=== PATIENT | female | born 1950 | race African-American/Black ===

== ENCOUNTER 2018-03-13 09:29 | Outpatient (CLI) | payer MEDICARE, OTHER ==
[2018-03-13] MEDS ORDERED: ISOVUE-370 76%-LOCM 1 ML ONE (09:55)
== END 2018-03-13 09:30 | disposition home or self-care (01) ==
LOC: BICCT 09:29
PROVIDERS: ATTEND Family Medicine
DX: R10.13 Epigastric pain (principal); R63.4 Abnormal weight loss; R68.81 Early satiety
CPT/HCPCS: 74177; 82565

== ENCOUNTER 2018-03-24 14:36 | Outpatient (CLI) | payer MEDICARE, OTHER ==
[~2018-03-24 14:36] MED LIST: Iopamidol 370 76% 100 ML VIAL ONE
== END 2018-03-24 14:37 | disposition home or self-care (01) ==
LOC: BICCT 14:36
PROVIDERS: ATTEND Internal Medicine Gastroenterology
DX: R93.3 Abnormal findings on diagnostic imaging of other parts of digestive tract (principal); R63.4 Abnormal weight loss; R19.8 Other specified symptoms and signs involving the digestive system and abdomen; R11.0 Nausea; R53.81 Other malaise; R63.0 Anorexia; K22.9 Disease of esophagus, unspecified
CPT/HCPCS: 71260

== ENCOUNTER 2018-04-09 11:00 | Outpatient (CLI) | payer MEDICARE, OTHER ==
--- NOTE | 2018-04-09 15:15 | PET ---
PET WITH CT SKULL TO MID THIGH: CLINICAL HISTORY: Esophageal mass. Mass of the mediastinum demonstrated on preceding CT examinations dated 03/24/18 and 03/13/18. FINDINGS: There is appropriate biodistribution of radiotracer activity. RADIOTRACER: 11.5 mCi fluorine 18-FDG IV. FINDINGS: The previously documented mediastinal mass adjacent esophagus is redemonstrated. This is not hyperme tabolic. The finding demonstrates a similar noncontrast Hounsfield unit to a prior contrasted Hounsf ield unit which indicates a nonenhancing cyst. 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 No associated inflammation. There is mild multifocal subpleural irregularity/nodularity of the lungs bilaterally. There are a fe w scattered blebs of the pulmonary parenchyma. Evidence of prior cholecystectomy. There is vascular calcification. There is a noninflamed fat-containing umbilical hernia. There is mild degenerative a ctivity involving the facet joint of the low cervical spine. 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 No associat ed hypermetabolic activity. POS: FRANK
== END 2018-04-09 11:01 | disposition home or self-care (01) ==
LOC: PET 11:00
PROVIDERS: ATTEND Thoracic Surgery (Cardiothoracic Vascular Surgery)
DX: K22.8 Other specified diseases of esophagus (principal); J98.59 Other diseases of mediastinum, not elsewhere classified
CPT/HCPCS: 78815; A9552

== ENCOUNTER 2018-08-21 08:24 | Outpatient (CLI) | payer MEDICARE, OTHER | END 2018-08-21 08:25 | disposition home or self-care (01) | LOC: BICMAMMO 08:24 | PROVIDERS: ATTEND Family Medicine | DX: Z12.31 Encounter for screening mammogram for malignant neoplasm of breast (principal) | CPT/HCPCS: 77063; 77067 ==

== ENCOUNTER 2020-12-14 09:00 | Outpatient (CLI) | payer MEDICARE, OTHER | END 2020-12-14 09:01 | disposition home or self-care (01) | LOC: BICMAMMO 09:00 | PROVIDERS: ATTEND Family Medicine | DX: Z12.31 Encounter for screening mammogram for malignant neoplasm of breast (principal) | CPT/HCPCS: 77063; 77067 ==

== ENCOUNTER 2021-06-07 13:49 | Outpatient (CLI) | payer MEDICARE, OTHER | END 2021-06-07 13:50 | disposition home or self-care (01) | LOC: BICMRI 13:49 | PROVIDERS: ATTEND Family Medicine | DX: I63.39 Cerebral infarction due to thrombosis of other cerebral artery (principal); I63.89 Other cerebral infarction; I67.82 Cerebral ischemia; I67.89 Other cerebrovascular disease | CPT/HCPCS: 70551 ==

== ENCOUNTER 2021-07-18 08:10 | Outpatient (CLI) | payer MEDICARE, OTHER ==
[2021-07-18] MEDS ORDERED: Iopamidol-370 76% 500 ML 1 ML ONE (09:25)
== END 2021-07-18 08:11 | disposition home or self-care (01) ==
LOC: BICCT 08:10
PROVIDERS: ATTEND Family Medicine
DX: R63.4 Abnormal weight loss (principal); R63.0 Anorexia; R11.0 Nausea; K76.0 Fatty (change of) liver, not elsewhere classified; K44.9 Diaphragmatic hernia without obstruction or gangrene; K42.9 Umbilical hernia without obstruction or gangrene; K40.90 Unilateral inguinal hernia, without obstruction or gangrene, not specified as recurrent; K43.9 Ventral hernia without obstruction or gangrene
CPT/HCPCS: 74177; 82565; Q9967

== ENCOUNTER 2023-01-08 10:47 | Outpatient (CLI) | payer MEDICARE, OTHER | END 2023-01-08 10:48 | disposition home or self-care (01) | LOC: BICMAMMO 10:47 | PROVIDERS: ATTEND Family Medicine | DX: Z12.31 Encounter for screening mammogram for malignant neoplasm of breast (principal) | CPT/HCPCS: 77063; 77067 ==

== ENCOUNTER 2023-05-15 13:45 | Emergency (ER) | payer MEDICARE, OTHER | END 2023-05-15 14:40 | disposition home or self-care (01) | LOC: ERS 13:45 | DX: K08.89 Other specified disorders of teeth and supporting structures (principal); I10 Essential (primary) hypertension | CPT/HCPCS: 99282 ==

== ENCOUNTER 2023-09-05 09:40 | Outpatient (CLI) | payer MEDICARE, OTHER | END 2023-09-05 09:41 | disposition home or self-care (01) | LOC: BICCT 09:40 | PROVIDERS: ATTEND Nurse Practitioner Family | DX: J45.998 Other asthma (principal); R14.0 Abdominal distension (gaseous); R10.11 Right upper quadrant pain; R63.5 Abnormal weight gain; R10.2 Pelvic and perineal pain; K42.9 Umbilical hernia without obstruction or gangrene; Z90.49 Acquired absence of other specified parts of digestive tract; Z90.710 Acquired absence of both cervix and uterus | CPT/HCPCS: 71260; 74177; 82565 ==

== ENCOUNTER 2024-02-23 08:09 | Outpatient (CLI) | payer MEDICARE, OTHER | END 2024-02-23 08:10 | disposition home or self-care (01) | LOC: BICMAMMO 08:09 | PROVIDERS: ATTEND Nurse Practitioner Family | DX: Z12.31 Encounter for screening mammogram for malignant neoplasm of breast (principal); Z13.820 Encounter for screening for osteoporosis; M85.88 Other specified disorders of bone density and structure, other site; Z78.0 Asymptomatic menopausal state | CPT/HCPCS: 77063; 77067; 77080 ==

== ENCOUNTER 2025-04-14 14:22 | Outpatient (CLI) | payer MEDICARE | END 2025-04-14 14:23 | disposition home or self-care (01) | LOC: RAD 14:22 | PROVIDERS: ATTEND Internal Medicine | DX: J45.30 Mild persistent asthma, uncomplicated (principal) | CPT/HCPCS: 71046 ==

== ENCOUNTER 2025-08-27 16:45 | Emergency (ER) | payer MEDICARE, OTHER ==
[2025-08-27 17:59] LABS: #Basophils Less than 0.03 10x3/uL (0.0-0.2); #Eosinophils 0.16 10x3/uL (0.0-0.7); #Monocytes 0.75 10x3/uL (0.11-0.59); #Neutrophils 4.82 10x3/uL (1.40-6.50); %Basophils 0.2 % (0.0-1.0); %Eosinophils 1.9 % (0.0-10.0); %Lymphocytes 30.0 % (21.0-51.0); %Monocytes 9.1 % (0.0-10.0); %Neutrophils 58.4 % (42.0-75.0); Hematocrit 37.0 % (36.0-47.0); Hemoglobin 12.2 g/dL (12.0-16.0); Mean Corpuscular Hemoglobin 29.3 pg (27.0-31.0); Mean Corpuscular Volume 88.7 fL (78.0-98.0); Platelet Count 212 10x3/uL (130-400); Red Blood Cell (RBC) Count 4.17 mill/uL (4.20-5.40); White Blood Cell (WBC) Count 8.26 10x3/uL (4.8-10.8)
[2025-08-27 18:13] LABS: CAUTI Indications for Culture Dysuria,urgency,freq; Glucose, Urine (Dipstick) Normal (Negative); Leukocyte 500 Leu/uL (Negative); Protein, Urine (Dipstick) Negative (Neg-Trace); Specific Gravity, Urine 1.012 (1.002-1.036); WBC/HPF 21-50 HPF (0-3)
[2025-08-27 18:14] LABS: Bacteria/HPF 1+ HPF (None Seen)
[2025-08-27 18:16] LABS: Urine Culture Reflex Yes Yes
[2025-08-27 18:54] LABS: ALT (SGPT) 23 U/L (Less than 34); AST (SGOT) 16 U/L (11-34); Albumin 3.7 g/dL (3.1-4.5); Alkaline Phosphatase 85 U/L (40-110); Anion Gap 7 mmol/L (10-20); BUN (Urea Nitrogen) 38 mg/dL (9.8-20.1); Bilirubin, Total 0.2 mg/dL (0.3-1.2); Calc. Creatinine Clearance 0 mL/min (70-130); Calcium 9.1 mg/dL (7.8-10.44); Carbon Dioxide 22 mmol/L (23-31); Chloride 106 mmol/L (98-107); Globulin 3.1 g/dL (2.4-3.5); Glucose 98 mg/dL (83-110); Potassium 4.0 mmol/L (3.5-5.1); Sodium 131 mmol/L (136-145)
== END 2025-08-27 19:10 | disposition home or self-care (01) ==
LOC: ERS 16:45
DX: N39.0 Urinary tract infection, site not specified (principal); E78.5 Hyperlipidemia, unspecified; I10 Essential (primary) hypertension; E11.9 Type 2 diabetes mellitus without complications; I25.2 Old myocardial infarction; Z79.82 Long term (current) use of aspirin; Z79.899 Other long term (current) drug therapy
CPT/HCPCS: 71045; 80053; 81001; 83880; 84484; 85025; 87086; 93005; 96360